=== PATIENT | male | born 2000 | race Caucasian/White ===

== ENCOUNTER → 2021-11-19 | Outpatient (CLI) | payer OTHER | LOC: KOH-I 15:37 | DX: S82.892A Other fracture of left lower leg, initial encounter for closed fracture (principal); S82.832A Other fracture of upper and lower end of left fibula, initial encounter for closed fracture | CPT/HCPCS: 73610 ==

== ENCOUNTER → 2021-12-18 | Outpatient (CLI) | payer OTHER | LOC: KOH-I 15:54 | DX: S82.892A Other fracture of left lower leg, initial encounter for closed fracture (principal); X58.XXXA Exposure to other specified factors, initial encounter | CPT/HCPCS: 73610 ==